=== PATIENT | female | born 1965 | race Caucasian/White ===

== ENCOUNTER 2022-04-19 15:34 | Emergency (ER) | payer BC, OTHER ==
[2022-04-19 16:27] VITALS: BP 105/72; PULSE 54; TEMP 98; BMI 29.1
== END 2022-04-19 17:05 | disposition home or self-care (01) ==
LOC: FER 15:34
DX: S99.912A Unspecified injury of left ankle, initial encounter (principal); W10.9XXA Fall (on) (from) unspecified stairs and steps, initial encounter
CPT/HCPCS: 73610-TC-LT-FY; 73630-TC-LT; 99283-25

== ENCOUNTER 2024-04-20 09:13 | Emergency (ER) | payer OTHER ==
[2024-04-20 09:23] VITALS: BP 125/74; PULSE 78; RESP 16; TEMP 98.1; BMI 29.9
== END 2024-04-20 11:20 | disposition home or self-care (01) ==
LOC: FER 09:13
DX: R41.0 Disorientation, unspecified (principal); W10.8XXA Fall (on) (from) other stairs and steps, initial encounter
CPT/HCPCS: 70450-TC; 82962; 99284-25